=== PATIENT | female | born 1980 | race Caucasian/White ===

== ENCOUNTER 2016-11-18 07:48 | Emergency (ER) | payer MEDICAID ==
[~2016-11-18] VITALS: Ht 152.4 cm; Wt 52.2 kg
[~2016-11-18 07:48] MED LIST: ABILIFY2 MG ORAL; BUPROPION XL300 MG ORAL; IBUPROFEN600 MG ORAL; NKM; SILVADENE CREAM50 GM TOP; TRAMADOL HCL50 MG ORAL; TRAZODONE HCL150 MG ORAL
[2016-11-18] MEDS ORDERED: ROBAXIN-750750 MG PO (08:04)
[2016-11-18] MEDS ORDERED: IBUPROFEN600 MG ORAL (08:04)
--- NOTE | 2016-11-18 08:07 | Emergency Room Report ---
History of Present Illness General Chief Complaint: Neck Pain Source: Patient Present Illness HPI Patient presents with complaints of left-sided neck discomfort ongoing since Tuesday Patient reports waking up with that discomfort denies any headache Denies any fevers denies any recent illness denies any chest pain or shortness of breath Denies any fall or trauma Patient feels that her left side of her neck is spasmed and turning to the right worsens the pain Denies any vomiting denies any photophobia Allergies: Coded Allergies: No Known Allergies (Unverified , 02/15/15) Patient History Past Medical History: see triage record Pertinent Family History: none Last Menstrual Period: 11/17/16 Reviewed Nursing Documentation: PMH: Agreed, PSxH: Agreed Nursing Documentation-PMH Past Medical History: No History, Except For Hx Hypertension: No Hx Pacemaker: No Hx Asthma: No Hx COPD: No Hx Diabetes: No Hx Cancer: No Hx Gastrointestinal Problems: No Hx Dialysis: No History Of Psychiatric Problem: Yes - Anxiety Hx Neurological Problems: No Hx Cerebrovascular Accident: No Hx Seizures: No Review of Systems All Other Systems: negative except mentioned in HPI Physical Exam Vital Signs Date Time Temp Pulse Resp B/P (MAP) Pulse Ox O2 Delivery O2 Flow Rate FiO2 11/18/16 07:50 97.0 69 16 116/75 99 Room Air Sp02 EP Interpretation: reviewed, normal General Appearance: well appearing, no apparent distress Head: normocephalic, atraumatic Eyes: bilateral eye PERRL, bilateral eye EOMI ENT: hearing grossly normal, normal pharynx, TMs + canals normal, uvula midline Neck: no meningismus, no bony tend, other - Spasming left SCM, also left paracervical region, patient has had mildly turn to the left and slightly tilted Respiratory: lungs clear, normal breath sounds, no rhonchi, no respiratory distress, no retraction, no accessory muscle use Cardiovascular #1: normal peripheral pulses, regular rate, rhythm, no edema, no gallop, no JVD, no murmur Gastrointestinal: normal bowel sounds, non tender, soft, no mass, no organomegaly, non-distended, no guarding, no hernia, no pulsatile mass, no rebound Musculoskeletal: normal inspection Neurologic: oriented x3, responsive, 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, motor strength/ tone normal, sensory intact Psychiatric: mood/affect normal Skin: normal color, no rash, warm/dry, palpation normal Lymphatic: normal inspection, no adenopathy Medical Decision Making Diagnostic Impression: Primary Impression: neck strain ER Course Patient has some presentation similar to torticollis There is a component of cervical sprain and spasming Other differentials such as infectious, neurological neurosurgical pathology entertained however does not appear to be clinically presents Patient is initially treated symptomatically No signs of any trismus The patient stable clinically for initial outpatient followup, Last Vital Signs Date Time Temp Pulse Resp B/P (MAP) Pulse Ox O2 Delivery O2 Flow Rate FiO2 11/18/16 07:50 97.0 69 16 116/75 99 Room Air Status: improved Disposition: HOME, SELF-CARE Condition: Improved Scripts Methocarbamol* (ROBAXIN-750*) 750 Mg Tablet 750 MG PO TID, #21 TAB 0 Refills Prov: SHANE SHAY D.O. 11/18/16 Ibuprofen* (MOTRIN*) 600 Mg Tablet 600 MG ORAL Q8H Y for For Pain, #20 TAB 0 Refills Prov: SHANE SHAY D.O. 11/18/16 Patient Instructions: Cervical Sprain, [id number] Additional Instructions: Patient is provided with the discharge instructions notified to follow up with primary doctor in the next 2-3 days otherwise return to the er with any worsening symptoms. Please note that this report is being documented using [employer] technology. This can lead to erroneous entry secondary to incorrect interpretation by the dictating instrument. SHANE SHAY D.O. Nov 18, 2016 08:07
[2016-11-18 08:08] VITALS: BP 116/82
[2016-11-18] MEDS ORDERED: Ketorolac 60mg Inj IM ONE (08:15)
== END 2016-11-18 08:35 | disposition home or self-care (01) ==
LOC: EMR 08:16
DX: S16.1XXA Strain of muscle, fascia and tendon at neck level, initial encounter (principal); X58.XXXA Exposure to other specified factors, initial encounter; Y92.89 Other specified places as the place of occurrence of the external cause
CPT/HCPCS: 96372; 99284